=== PATIENT | male | born 1960 | race Caucasian/White ===

== ENCOUNTER 2017-02-07 12:02 | Emergency (ER) | payer SELFPAY ==
[~2017-02-07] VITALS: Ht 165.1 cm; Wt 100.0 kg
[~2017-02-07 12:02] MED LIST: CLIN150 PO; ECOT81TA2 PO; FURO20 PO; LACT PO; LISI10 PO
[2017-02-07 12:05] VITALS: BP 164/98; PULSE 73; RESP 16; TEMP 98.7; O2SAT 99
--- NOTE | 2017-02-07 12:37 | PD ---
HPI Chief Complaint: Skin Problem Time Seen by Provider: 12:37 Travel History International Travel<30 days: No Contact w/Intl Traveler<30days: No Traveled to known affect area: No History of Present Illness HPI 56-year-old male presents emergency Department with complaint of a rash to his groin area and under his lower abdomen skinfold times one month. Says is itchy at times. Denies fever, vomiting. Denies dysuria. Has not tried any medications or treatments to alleviate his symptoms. No known aggravating or relieving factors. Symptoms are mild in severity. Allergies to penicillin. Has no other medical complaints. No other modifying factors or associated signs and symptoms. PFSH Past Medical History Blood Disorders: No Cancer: Yes (skin ) Cardiovascular Problems: No Chemotherapy: No Diminished Hearing: No Endocrine: No Genitourinary: No Immune Disorder: No Musculoskeletal: No Neurologic: No Psychiatric: No Reproductive: No Respiratory: No Radiation Therapy: No Tetanus Vaccination: > 5 Years Influenza Vaccination: No Past Surgical History Ear Surgery: Yes (LEFT EAR TUMOR) Tonsillectomy: Yes Social History Alcohol Use: No Tobacco Use: No Substance Use: No Allergies-Medications (Allergen,Severity, Reaction): Coded Allergies: penicillin G (Unverified Allergy, Severe, CHILDHOOD, 02/07/17) Reported Meds & Prescriptions Reported Meds & Active Scripts Active Nystatin Topical (Nystatin) 100,000 unit/gm Cream 1 Applic TOPICAL BID PRN Review of Systems Except as stated in HPI: all other systems reviewed are Neg Physical Exam Narrative GENERAL: Well-nourished, well-developed male patient, in no acute distress; afebrile, nontoxic-appearing SKIN: Warm and dry. Beefy-red rash to bilateral groin area and beneath lower abdomen skinfold consistent with skin yeast infection. HEAD: Atraumatic. Normocephalic. EYES: Pupils equal and round. No scleral icterus. No injection or drainage. ENT: Mucosa pink and moist. Airway patent. NECK: Trachea midline. CARDIOVASCULAR: Regular rate. RESPIRATORY: No accessory muscle use. GASTROINTESTINAL: Obese. MUSCULOSKELETAL: No obvious deformities. No clubbing. No cyanosis. No edema. NEUROLOGICAL: Awake and alert. Oriented 3. No obvious cranial nerve deficits. Motor grossly within normal limits. Normal speech. PSYCHIATRIC: Appropriate mood and affect; insight and judgment normal. Data Data Last Documented VS Vital Signs Date Time Temp Pulse Resp B/P (MAP) Pulse Ox O2 Delivery O2 Flow Rate FiO2 02/07/17 12:05 98.7 73 16 164/98 (120) 99 MDM Medical Decision Making Medical Screen Exam Complete: Yes Emergency Medical Condition: Yes Medical Record Reviewed: Yes Differential Diagnosis Yeast infection, contact dermatitis, nonspecific rash Narrative Course 56-year-old male physical exam consistent with a skin yeast infection. Patient is afebrile and nontoxic appearing. Denies fever, vomiting. Nystatin prescribed for home. Instructed patient to follow-up with dermatology as needed. Instructed patient to follow up with primary care provider. Patient verbalizes understanding and agreement with treatment plan. Patient is medically cleared and stable for discharge. Discussed reasons to return to the emergency department. Patient agrees with treatment plan. The patients vital signs are stable and the patient is stable for outpatient follow-up and treatment. Patient discharged home, stable and in no acute distress. 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
[2017-02-07] MEDS ORDERED: NYST15T TOPICAL (12:56)
== END 2017-02-07 13:27 | disposition home or self-care (01) ==
LOC: NEPK 12:02
DX: B37.2 Candidiasis of skin and nail (principal)
CPT/HCPCS: 99283